=== PATIENT | male | born 1990 | race Caucasian/White ===

== ENCOUNTER 2019-05-12 16:03 | Emergency (ER) | payer OTHER ==
[~2019-05-12] VITALS: Ht 175.3 cm; Wt 64.5 kg
[~2019-05-12 16:03] MED LIST: ACET-141 PO; IBUP-1561 PO
[2019-05-12 16:13] VITALS: BP 140/67; PULSE 72; RESP 16; Ht 175.3 cm; Wt 64.5 kg
== END 2019-05-12 18:09 | disposition home or self-care (01) ==
LOC: E/R 16:03
DX: S62.337A Displaced fracture of neck of fifth metacarpal bone, left hand, initial encounter for closed fracture (principal); X58.XXXA Exposure to other specified factors, initial encounter; Y92.9 Unspecified place or not applicable
CPT/HCPCS: 29125; 73130; Z7502